=== PATIENT | male | born 1985 | race Two or more races ===

== ENCOUNTER 2019-01-24 12:54 | Emergency (ER) | payer OTHER ==
[~2019-01-24] VITALS: Ht 170.2 cm; Wt 86.2 kg
== END 2019-01-24 20:10 | disposition home or self-care (01) ==
LOC: ER 12:54
DX: K62.89 Other specified diseases of anus and rectum (principal)

== ENCOUNTER 2019-01-25 06:55 | Emergency (ER) | payer OTHER ==
[~2019-01-25] VITALS: Ht 170.2 cm; Wt 86.2 kg
== END 2019-01-25 11:15 | disposition home or self-care (01) ==
LOC: ER 06:55
DX: K62.89 Other specified diseases of anus and rectum (principal)